=== PATIENT | male | born 1945 | race Caucasian/White ===

== ENCOUNTER 2016-11-19 10:28 | Day surgery (SDC) | payer OTHER ==
[~2016-11-19] VITALS: Ht 172.7 cm; Wt 57.5 kg
[2016-11-19] MEDS ORDERED: 0.9% SODIUM CHLORIDE 10 ML SYRINGE IVP PRN (11:15)
[2016-11-19] MEDS ORDERED: 0.9% SODIUM CHLORIDE 10 ML SYRINGE IVP ONE (11:37)
[2016-11-19] MEDS ORDERED: IODIXANOL 320 MG/ML 100 ML VIAL ONE (12:32)
[2016-11-19] MEDS ORDERED: HEPARIN SODIUM 1000 UNITS/NS 500 ML ONE (12:44)
[2016-11-19] MEDS ORDERED: LIDOCAINE HCL/PF 1% 30 ML VIAL ONE (12:44)
[2017-03-05] MEDS ORDERED: THYR113. PO (13:38)
[2017-03-05] MEDS ORDERED: NALT50TA10 PO (13:38)
== END 2016-11-19 14:05 | disposition home or self-care (01) ==
LOC: SDS 10:28
PROVIDERS: ATTEND Radiology Diagnostic Radiology
DX: N32.0 Bladder-neck obstruction (principal); N13.30 Unspecified hydronephrosis; Z98.890 Other specified postprocedural states
CPT/HCPCS: 51102; 76000; 76942; J1644; J3490; Q9967; 36245

== ENCOUNTER 2017-03-06 09:41 | Day surgery (SDC) | payer OTHER ==
[~2017-03-06] VITALS: Ht 172.7 cm; Wt 58.2 kg
[~2017-03-06 09:41] MED LIST: CIPROFLOXACIN 400 MG/D5% WATER 200 ML IV ONE; LORazepam 2 MG/ML VIAL IVP PRN; NALT50TA10 PO; SODIUM CHLORIDE 0.9% 1,000 ML IV ONE; THYR113. PO
[2017-03-06] MEDS ORDERED: CIPROFLOXACIN 400 MG/D5% WATER 200 ML IV ONE (10:00)
[2017-03-06] MEDS ORDERED: LORazepam 2 MG/ML VIAL IVP PRN (10:00)
[2017-03-06] MEDS ORDERED: SODIUM CHLORIDE 0.9% 1,000 ML IV ONE ×2 (10:00→10:05)
[2017-03-06 10:43] LABS: BASOPHILS # (AUTO) 0.07 K/uL (0.00-0.20); BASOPHILS % (AUTO) 0.6 % (0.0-2.0); EOSINOPHILS # (AUTO) 0.11 K/uL (0.00-0.70); EOSINOPHILS % (AUTO) 0.89 % (1.0-6.0); HEMATOCRIT 35.8 % (41-53); HEMOGLOBIN 11.8 g/dL (13.5-17.5); MEAN CORPUSCULAR HEMOGLOBIN 30.9 pg (26.0-34.0); MEAN CORPUSCULAR HGB CONC 32.8 G/dL (31.0-37.0); MEAN CORPUSCULAR VOLUME 94 fL (80-100); MONOCYTES # (AUTO) 0.5 K/uL (0.1-1.0); NEUTROPHILS # (AUTO) 9.6 K/uL (1.8-7.7); NEUTROPHILS % (AUTO) 78.6 % (40.0-70.0); PLATELET COUNT (AUTO) 264 K/uL (150-450); RED BLOOD CELL COUNT(AUTO) 3.81 MIL/uL (4.50-5.90); RED CELL DISTRIBUTION WIDTH 14.9 % (11.5-14.5); WHITE BLOOD COUNT (AUTO) 12.3 K/uL (4.5-11.0)
[2017-03-06 10:49] LABS: CALCIUM, TOTAL 8.7 mg/dL (8.8-10.5); CREATININE 2.86 mg/dL (0.60-1.30); POTASSIUM 4.4 mmol/L (3.5-5.1)
[2017-03-06 10:57] LABS: ALBUMIN 3.6 g/dL (3.4-5.0); BILIRUBIN,TOTAL 0.3 mg/dL (0.1-1.0); TOTAL PROTEIN, SERUM 7.6 g/dL (6.4-8.2)
[2017-03-06] MEDS ORDERED: KETAMINE HCL 50 MG/ML 10 ML VIAL IVP ONE (12:00)
[2017-03-06] MEDS ORDERED: MIDAZOLAM HCL 2 MG/2 ML VIAL IVP ONE (12:00)
[2017-03-06 12:43] VITALS: BP 166/77
[2017-03-06] MEDS ORDERED: SODIUM BICARBONATE 50 MEQ/50 ML VIAL ONE (12:43)
[2017-03-06] MEDS ORDERED: LIDOCAINE HCL/PF 1% 30 ML VIAL ONE (12:43)
[2017-03-06] MEDS ORDERED: HEPARIN SODIUM 1000 UNITS/NS 500 ML ONE (12:44)
[2017-03-06] MEDS ORDERED: IOHEXOL 300 MG/ML 50 ML VIAL ONE ×2 (12:49→14:28)
[2017-03-06] MEDS ORDERED: IOHEXOL 300 MG/ML 50 ML VIAL IARTER ONE ×2 (13:30→14:45)
[2017-03-06] MEDS ORDERED: LIDOCAINE 1% 30 ML/SOD BICARB 8.4% 4 ML SQ ONE (13:30)
[2017-03-06] MEDS ORDERED: HYDROmorphone 2 MG/ML SYRINGE IVP PRN (15:00)
== END 2017-03-06 16:35 | disposition home or self-care (01) ==
LOC: SDS 09:41
PROVIDERS: ATTEND Radiology Diagnostic Radiology
DX: N36.8 Other specified disorders of urethra (principal); C61 Malignant neoplasm of prostate; N32.0 Bladder-neck obstruction; N13.30 Unspecified hydronephrosis; N18.3 Chronic kidney disease, stage 3 (moderate); D64.9 Anemia, unspecified; Z72.89 Other problems related to lifestyle; Z98.890 Other specified postprocedural states
CPT/HCPCS: 36415; 53410; 75984; 80053; 85025; 93005; C1725; C1769; C1892; J0744; J1644; J2250; J3490 ×3; J7030; Q9967; 36245

== ENCOUNTER 2017-05-19 07:44 | Day surgery (SDC) | payer MEDICARE, BC ==
[~2017-05-19] VITALS: Ht 170.2 cm; Wt 58.2 kg
[~2017-05-19 07:44] MED LIST changes: +CeFAZolin 1 GM/DEXTROSE 50 ML IV ONE
[2017-05-19] MEDS ORDERED: SODIUM CHLORIDE 0.9% 1,000 ML IV ONE ×2 (08:07→16:45)
[2017-05-19 08:46] LABS: BASOPHILS # (AUTO) 0.08 K/uL (0.00-0.20); BASOPHILS % (AUTO) 0.9 % (0.0-2.0); EOSINOPHILS # (AUTO) 0.29 K/uL (0.00-0.70); EOSINOPHILS % (AUTO) 3.12 % (1.0-6.0); HEMATOCRIT 33.7 % (41-53); HEMOGLOBIN 11.3 g/dL (13.5-17.5); LYMPHOCYTES # (AUTO) 2.1 K/uL (1.0-4.8); LYMPHOCYTES % (AUTO) 22.3 % (22.0-44.0); MEAN CORPUSCULAR HEMOGLOBIN 32.2 pg (26.0-34.0); MEAN CORPUSCULAR HGB CONC 33.5 G/dL (31.0-37.0); MEAN CORPUSCULAR VOLUME 96 fL (80-100); MONOCYTES # (AUTO) 0.5 K/uL (0.1-1.0); NEUTROPHILS # (AUTO) 6.4 K/uL (1.8-7.7); NEUTROPHILS % (AUTO) 68.6 % (40.0-70.0); PLATELET COUNT (AUTO) 248 K/uL (150-450); RED BLOOD CELL COUNT(AUTO) 3.51 MIL/uL (4.50-5.90); RED CELL DISTRIBUTION WIDTH 14.8 % (11.5-14.5); WHITE BLOOD COUNT (AUTO) 9.3 K/uL (4.5-11.0)
[2017-05-19 08:59] LABS: CALCIUM, TOTAL 9.1 mg/dL (8.8-10.5); CREATININE 2.87 mg/dL (0.60-1.30); POTASSIUM 4.7 mmol/L (3.5-5.1)
[2017-05-19 09:05] LABS: ALBUMIN 3.5 g/dL (3.4-5.0); BILIRUBIN,TOTAL 0.5 mg/dL (0.1-1.0); TOTAL PROTEIN, SERUM 7.1 g/dL (6.4-8.2)
[2017-05-19] MEDS ORDERED: LORazepam 2 MG/ML VIAL ONE (09:44)
[2017-05-19] MEDS ORDERED: CeFAZolin 1 GM/DEXTROSE 50 ML IV ONE (09:44)
[2017-05-19] MEDS ORDERED: IOHEXOL 300 MG/ML 100 ML VIAL ONE (12:52)
[2017-05-19] MEDS ORDERED: HEPARIN SODIUM 1000 UNITS/NS 500 ML ONE (12:52)
[2017-05-19] MEDS ORDERED: LIDOCAINE HCL/PF 1% 30 ML VIAL ONE (12:52)
[2017-05-19 13:03] VITALS: BP 161/78
[2017-05-19] MEDS ORDERED: FentaNYL CITRATE-PF 100 MCG/2 ML VIAL ONE ×2 (13:12→15:36)
[2017-05-19] MEDS ORDERED: MIDAZOLAM HCL 2 MG/2 ML VIAL ONE ×3 (13:12→16:02)
[2017-05-19] MEDS ORDERED: FentaNYL CITRATE-PF 100 MCG/2 ML VIAL IVP ONE ×5 (13:30→16:30)
[2017-05-19] MEDS ORDERED: MIDAZOLAM HCL 2 MG/2 ML VIAL IVP ONE ×5 (13:30→16:30)
[2017-05-19] MEDS ORDERED: IOHEXOL 300 MG/ML 50 ML VIAL ONE ×3 (14:45→15:38)
[2017-05-19] MEDS ORDERED: IOHEXOL 300 MG/ML 50 ML VIAL IARTER ONE ×2 (15:15)
[2017-05-19] MEDS ORDERED: SODIUM CHLORIDE 0.9% 1,000 ML IV SCH (16:31)
[2017-05-19 16:39] VITALS: BP 145/73
[2017-05-19] MEDS ORDERED: HYDROmorphone HCL 2 MG TABLET PO ONE (16:45)
[2017-05-19] MEDS ORDERED: OxyCODONE HCL/ACETAMINOPHEN 5-325 MG TABLET PO PRN ×2 (16:45)
[2017-05-19] MEDS ORDERED: HYDROmorphone 2 MG/ML SYRINGE IVP PRN (16:45)
[2017-05-19] MEDS ORDERED: HYDROmorphone 2 MG/ML SYRINGE ONE (17:14)
[2017-05-19] MEDS ORDERED: PROMETHAZINE HCL 25 MG/ML VIAL IM ONE (17:30)
[2017-05-19] MEDS ORDERED: 0.9% SODIUM CHLORIDE 10 ML SYRINGE IVP ONE ×2 (17:35→17:45)
== END 2017-05-19 20:10 | disposition home or self-care (01) ==
LOC: SDS 07:44
PROVIDERS: ATTEND Radiology Diagnostic Radiology
DX: C61 Malignant neoplasm of prostate (principal); E03.9 Hypothyroidism, unspecified; Z98.890 Other specified postprocedural states
CPT/HCPCS: 36247; 36415; 37243; 75736; 75774; 76937; 80053; 85025; 99152; 99153; C1769; J0690; J0744; J1170; J1644; J2060; J2250; J2550; J3010; J3490; J7030; Q9967 ×2; 36245

== ENCOUNTER 2017-09-04 06:14 | Day surgery (SDC) | payer MEDICARE, BC ==
[~2017-09-04] VITALS: Ht 175.3 cm; Wt 59.1 kg
[~2017-09-04 06:14] MED LIST changes: -CIPROFLOXACIN 400 MG/D5% WATER 200 ML IV ONE; -CeFAZolin 1 GM/DEXTROSE 50 ML IV ONE; -LORazepam 2 MG/ML VIAL IVP PRN
[2017-09-04] MEDS ORDERED: LORazepam 2 MG/ML VIAL IVP PRN (06:15)
[2017-09-04] MEDS ORDERED: CeFAZolin 1 GM/DEXTROSE 50 ML IV ONE ×2 (06:15→06:24)
[2017-09-04] MEDS ORDERED: SODIUM CHLORIDE 0.9% 1,000 ML IV ONE ×2 (06:24→10:45)
[2017-09-04 07:22] LABS: BASOPHILS # (AUTO) 0.05 K/uL (0.00-0.20); BASOPHILS % (AUTO) 0.6 % (0.0-2.0); EOSINOPHILS # (AUTO) 0.25 K/uL (0.00-0.70); EOSINOPHILS % (AUTO) 2.99 % (1.0-6.0); HEMATOCRIT 35.5 % (41-53); HEMOGLOBIN 11.8 g/dL (13.5-17.5); LYMPHOCYTES # (AUTO) 2.2 K/uL (1.0-4.8); LYMPHOCYTES % (AUTO) 25.9 % (22.0-44.0); MEAN CORPUSCULAR HEMOGLOBIN 31.9 pg (26.0-34.0); MEAN CORPUSCULAR HGB CONC 33.3 G/dL (31.0-37.0); MEAN CORPUSCULAR VOLUME 96 fL (80-100); MONOCYTES # (AUTO) 0.5 K/uL (0.1-1.0); MONOCYTES % (AUTO) 6.2 % (2.0-9.0); NEUTROPHILS # (AUTO) 5.4 K/uL (1.8-7.7); NEUTROPHILS % (AUTO) 64.3 % (40.0-70.0); PLATELET COUNT (AUTO) 213 K/uL (150-450); RED BLOOD CELL COUNT(AUTO) 3.71 MIL/uL (4.50-5.90); WHITE BLOOD COUNT (AUTO) 8.3 K/uL (4.5-11.0)
[2017-09-04 07:35] LABS: ALBUMIN 3.5 g/dL (3.4-5.0); BILIRUBIN,TOTAL 0.3 mg/dL (0.1-1.0); CALCIUM, TOTAL 8.8 mg/dL (8.8-10.5); CREATININE 2.66 mg/dL (0.60-1.30); POTASSIUM 4.6 mmol/L (3.5-5.1)
[2017-09-04] MEDS ORDERED: HEPARIN SODIUM 1000 UNITS/NS 0 ML ONE (07:48)
[2017-09-04] MEDS ORDERED: LIDOCAINE HCL/PF 1% 30 ML VIAL ONE (07:48)
[2017-09-04] MEDS ORDERED: IODIXANOL 320 MG/ML 50 ML VIAL ONE (07:48)
[2017-09-04] MEDS ORDERED: SODIUM BICARBONATE 50 MEQ/50 ML VIAL ONE (07:48)
[2017-09-04] MEDS ORDERED: IOHEXOL 300 MG/ML 50 ML VIAL ONE ×2 (08:03→11:05)
[2017-09-04 09:35] VITALS: BP 149/71
[2017-09-04] MEDS ORDERED: FentaNYL CITRATE-PF 100 MCG/2 ML VIAL ONE ×2 (09:56→10:42)
[2017-09-04] MEDS ORDERED: MIDAZOLAM HCL 2 MG/2 ML VIAL ONE ×2 (09:56→10:42)
[2017-09-04] MEDS ORDERED: WATER IV ONE (10:00)
[2017-09-04] MEDS ORDERED: LIDOCAINE HCL 2% 30 ML JELLY TP ONE (10:00)
[2017-09-04] MEDS ORDERED: DEXTROSE 5% IV ONE (10:00)
[2017-09-04] MEDS ORDERED: ACETYLCYSTEINE IV ONE (10:00)
[2017-09-04] MEDS ORDERED: LIDOCAINE HCL 2% 30 ML JELLY ONE (10:15)
[2017-09-04] MEDS ORDERED: FentaNYL CITRATE-PF 100 MCG/2 ML VIAL IVP ONE ×2 (10:45)
[2017-09-04] MEDS ORDERED: LIDOCAINE 1% 30 ML/SOD BICARB 8.4% 4 ML SQ ONE (10:45)
[2017-09-04] MEDS ORDERED: MIDAZOLAM HCL 2 MG/2 ML VIAL IVP ONE ×2 (10:45)
[2017-09-04] MEDS ORDERED: IOHEXOL 300 MG/ML 50 ML VIAL ICOR ONE (10:45)
[2017-09-04 11:20] VITALS: BP 149/79
== END 2017-09-04 12:35 | disposition home or self-care (01) ==
LOC: SDS 06:14
PROVIDERS: ATTEND Radiology Diagnostic Radiology
DX: N32.0 Bladder-neck obstruction (principal); E03.9 Hypothyroidism, unspecified; Z85.46 Personal history of malignant neoplasm of prostate; Z98.890 Other specified postprocedural states
CPT/HCPCS: 36415; 51610; 51705; 74450; 75984; 80053; 85025; 99152; 99153; C1769; J0132; J0690; J2250; J3010; J3490 ×2; J7030; J7060; Q9967; 36245; 75989; J1644